=== PATIENT | female | born 1960 | race Caucasian/White ===

== ENCOUNTER 2021-07-09 06:10 | Day surgery (SDC) | payer OTHER, SELFPAY ==
[~2021-07-09] VITALS: Ht 160 cm; Wt 108.9 kg
[2021-07-09] MEDS ORDERED: ACETAMINOPHEN I.V. 1000 MG 100 ML IV ONE (06:57)
[2021-07-09] MEDS ORDERED: LR 1,000 ML IV.SOLN IV ONE (07:34)
[2021-07-09] MEDS ORDERED: DESFLURANE 15 MIN GAS INH ONE (07:34)
[2021-07-09] MEDS ORDERED: DEXAMETHASONE SOD PHOSPHATE 4 MG/ML VIAL IVP ONE (07:34)
[2021-07-09] MEDS ORDERED: OXYMETAZOLINE HCL 0.05% NASAL SPRAY NS ONE (07:34)
[2021-07-09] MEDS ORDERED: LIDOCAINE 1% 10 MG/ML, 20 ML MDV INJ ONE (07:34)
[2021-07-09] MEDS ORDERED: ONDANSETRON HCL 4 MG/2 ML VIAL IVP ONE (07:34)
[2021-07-09] MEDS ORDERED: PROPOFOL 200MG/ 20ML VIAL (DIPRIVAN) IV ONE (07:34)
[2021-07-09] MEDS ORDERED: fentaNYL CITRATE/PF 100 MCG/2 ML AMP IVP ONE (07:34)
[2021-07-09] MEDS ORDERED: LIDOCAINE/EPI 1% 1:100000 20 ML VIAL INJ ONE (07:34)
[2021-07-09] MEDS ORDERED: LABETALOL 100 MG/ 20ML VIAL IVP ONE (07:34)
[2021-07-09] MEDS ORDERED: MUPIROCIN 1 GM OIN.PF.APP NS ONE (07:34)
[2021-07-09] MEDS ORDERED: MIDAZOLAM HCL 5 MG/5 ML VIAL IVP ONE (07:34)
[2021-07-09] MEDS ORDERED: ROCURONIUM BROMIDE 10 MG/ML (ZEMURON) IV ONE (07:34)
[2021-07-09] MEDS ORDERED: SUGAMMADEX SODIUM 200 MG/2 ML VIAL IV ONE (07:34)
[2021-07-09] MEDS ORDERED: EPINEPHrine 1 MG/ML VIAL IV ONE (07:34)
[2021-07-09] MEDS ORDERED: METOCLOPRAMIDE HCL 10 MG/2 ML VIAL IVP PRN (08:30)
[2021-07-09] MEDS ORDERED: hydrALAZINE HCL 20 MG/ML VIAL IVP PRN (08:30)
[2021-07-09] MEDS ORDERED: MEPERIDINE HCL/PF 25 MG/ML DISP.SYRIN IVP PRN (08:30)
[2021-07-09] MEDS ORDERED: HYDROmorphone 1 MG/ML INJ. CARTRIDGE IVP PRN ×2 (08:30)
[2021-07-09] MEDS ORDERED: LR 1,000 ML IV SCH (08:30)
[2021-07-09] MEDS ORDERED: LABETALOL 100 MG/ 20ML VIAL IVP PRN (08:30)
[2021-07-09] MEDS ORDERED: MIDAZOLAM HCL 2 MG/2 ML VIAL (VERSED) IVP PRN (08:30)
[2021-07-09] MEDS ORDERED: METOCLOPRAMIDE HCL 10 MG/2 ML VIAL ONE (12:42)
[2021-07-09] MEDS ORDERED: METOCLOPRAMIDE HCL 10 MG/2 ML VIAL IVP ONE (12:45)
[2021-07-09] MEDS ORDERED: DIPHENHYDRAMINE INJ 50 MG/ML VIAL ONE (13:03)
[2021-07-09] MEDS ORDERED: MIDAZOLAM HCL 5 MG/5 ML VIAL ONE (13:12)
[2021-07-09] MEDS ORDERED: DIPHENHYDRAMINE INJ 50 MG/ML VIAL IVP ONE (13:15)
[2021-07-09] MEDS ORDERED: MIDAZOLAM HCL 2 MG/2 ML VIAL (VERSED) IVP ONE (13:15)
[2021-07-09 15:31] VITALS: BP_SYST 133
== END 2021-07-09 14:30 | disposition home or self-care (01) ==
LOC: SDS 06:10 → SMU 06:11 → SDS 14:30
PROVIDERS: ATTEND Otolaryngology
DX: J34.89 Other specified disorders of nose and nasal sinuses (principal); D38.5 Neoplasm of uncertain behavior of other respiratory organs; J32.4 Chronic pansinusitis; Z88.2 Allergy status to sulfonamides; I10 Essential (primary) hypertension; E66.01 Morbid (severe) obesity due to excess calories; K21.9 Gastro-esophageal reflux disease without esophagitis; M79.7 Fibromyalgia; Z79.899 Other long term (current) drug therapy; Z20.822 Contact with and (suspected) exposure to COVID-19
CPT/HCPCS: 30140; 30520; 31255; 31256; 31267; 88304; 88305; 88311; 88313; J0131; J1200; J2250; J2765; J3465; U0003; J0171; J1100; J2001; J2405; J2704; J3010; J3490; J7120